=== PATIENT | male | born 1985 | race Caucasian/White ===

== ENCOUNTER → 2017-03-21 | Outpatient (CLI) | payer BC ==
[~2017-03-21] MED LIST: ALPRAZOLAM; HYDROCODONE-AP1 EAC6 PO; LISINOPRIL5 MG PO; MEDROLDOSEPACK PO; NOHOMEMEDICATIONS; NORCO 5-325 TA1 EACH PO; OMEPRAZOLE; OMEPRAZOLE 20 M20 M1 PO; PERCOCET 5-3251 EACH PO; WELLBUTRIN 75 M75 M1 PO; XANAX 0.5 MG0.5 MG PO
== END ==
LOC: M.ULTRA 15:34
DX: R22.1 Localized swelling, mass and lump, neck (principal)

== ENCOUNTER → 2017-04-01 | Outpatient (CLI) | payer BC | LOC: M.MRI 12:41 | DX: D17.0 Benign lipomatous neoplasm of skin and subcutaneous tissue of head, face and neck (principal) ==

== ENCOUNTER 2018-10-24 11:20 | Emergency (ER) | payer BC ==
[~2018-10-24] VITALS: Ht 182.9 cm; Wt 132.4 kg
[2018-10-24 11:50] LABS: ABSOLUTE BASOPHILS 0.1 thou/uL (0.0-0.2); ABSOLUTE EOSINOPHILS 0.1 thou/uL (0.0-0.7); ABSOLUTE LYMPHOCYTES 1.8 thou/uL (0.8-5.3); ABSOLUTE MONOCYTES 0.6 thou/uL (0.0-1.2); ABSOLUTE NEUTROPHILS 7.9 thou/uL (1.6-8.1); BASOPHILS 0.7 %; EOSINOPHILS 0.9 %; HEMOGLOBIN 14.3 gm/dL (14.0-18.0); LYMPHOCYTES 16.9 %; MCH 29.8 pg (26.0-34.0); MCHC 33.2 g/dL (28.0-37.0); MONOCYTES 5.7 %; MPV 7.8 fl. (7.2-11.1); NUCLEATED RBCS 0 /100WBC; PLATELET COUNT* 368 thou/uL (150-400); POLYS 75.8 %; RBC 4.78 mil/uL (4.50-6.00); RDW-CV 13.3 % (10.5-14.5); WBC 10.4 thou/uL (4.0-11.0)
[2018-10-24 11:58] LABS: ANION GAP 8 mmol/L (7-16); BUN 16 mg/dL (7-18); CHLORIDE 106 mmol/L (98-107); CO2 27 mmol/L (21-32); GLUCOSE 102 mg/dL (70-99); POTASSIUM 4.3 mmol/L (3.5-5.1); SODIUM 141 mmol/L (136-145)
[2018-10-24 12:01] LABS: APTT 30.1 Seconds (25.0-31.3); PROTIME 10.1 Seconds (9.20-11.50)
[2018-10-24 12:10] LABS: ALBUMIN 3.9 g/dL (3.4-5.0); ALKALINE PHOSPHATASE 103 U/L (46-116); CK-MB MASS 1.2 ng/mL (<0.5-3.6); LIPASE 67 U/L (73-393); MAGNESIUM 1.9 mg/dL (1.8-2.4); NT-PRO BRAIN NAT PEPTIDE 26 pg/mL (<300); SGOT 13 U/L (15-37); SGPT 26 U/L (30-65); TOTAL BILIRUBIN 0.4 mg/dL (<0.1-1.0); TOTAL PROTEIN 7.6 g/dL (6.4-8.2); TROPONIN-I LEVEL <0.06 ng/mL (<0.06)
[2018-10-24 12:42] VITALS: BP 131/63
--- NOTE | 2018-10-26 07:32 | EKG ---
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
== END 2018-10-24 12:42 | disposition home or self-care (01) ==
LOC: M.ERS 11:20
PROVIDERS: Family Medicine
DX: R07.89 Other chest pain (principal); K21.9 Gastro-esophageal reflux disease without esophagitis; F41.9 Anxiety disorder, unspecified

== ENCOUNTER 2020-05-14 14:51 | Emergency (ER) | payer BC ==
[~2020-05-14] VITALS: Ht 182.9 cm; Wt 149.7 kg
[2020-05-14] MEDS ORDERED: ASA81BEC PO (14:57)
[2020-05-14] MEDS ORDERED: SUPER THERAVIT1 EACH PO (14:57)
[2020-05-14 15:17] LABS: HEMATOCRIT 40.8 % (42.0-52.0); HEMOGLOBIN 13.4 gm/dL (14.0-18.0); MCHC 32.7 g/dL (28.0-37.0); MCV 88.6 fL (80.0-100.0); MPV 7.4 fl. (7.2-11.1); RBC 4.61 mil/uL (4.50-6.00); RDW-CV 13.4 % (10.5-14.5); WBC 13.8 thou/uL (4.0-11.0)
[2020-05-14 15:25] LABS: CALCIUM 9.2 mg/dL (8.5-10.1); CREATININE 1.1 mg/dL (0.6-1.3); POTASSIUM 4.2 mmol/L (3.5-5.1)
[2020-05-14 16:34] VITALS: BP 119/67
--- NOTE | 2020-05-15 17:34 | EKG ---
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
== END 2020-05-14 16:35 | disposition home or self-care (01) ==
LOC: M.ERS 14:51
PROVIDERS: Emergency Medicine
DX: F41.1 Generalized anxiety disorder (principal); F41.0 Panic disorder [episodic paroxysmal anxiety]; R42 Dizziness and giddiness; F41.9 Anxiety disorder, unspecified; K21.9 Gastro-esophageal reflux disease without esophagitis; Z79.899 Other long term (current) drug therapy; Z79.82 Long term (current) use of aspirin